=== PATIENT | male | born 1990 | race African-American/Black ===

== ENCOUNTER 2017-11-03 04:37 | Emergency (ER) | payer OTHER ==
[~2017-11-03] VITALS: Ht 193 cm; Wt 90.7 kg
--- NOTE | 2017-11-03 04:37 | NUR ---
PT BIB [facility] PLACED IN BED 2.
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
[2017-11-03 04:42] VITALS: BP 125/80
[2017-11-03] MEDS ORDERED: FLUORESCEIN OPTH STRIP 1 MG OP ONE (04:50)
[2017-11-03] MEDS ORDERED: TETRACAINE HCL/PF 0.5% OPTH 4 ML BTL OP ONE (04:50)
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
[2017-11-03 06:07] VITALS: BP 128/76
== END 2017-11-03 05:50 ==
LOC: MED 04:37
DX: S01.81XA Laceration without foreign body of other part of head, initial encounter (principal); S61.512A Laceration without foreign body of left wrist, initial encounter; T15.92XA Foreign body on external eye, part unspecified, left eye, initial encounter; V49.60XA Unspecified car occupant injured in collision with unspecified motor vehicles in traffic accident, initial encounter; Y93.89 Activity, other specified; Y92.89 Other specified places as the place of occurrence of the external cause; Y99.8 Other external cause status
CPT/HCPCS: 12001; 71250; 99284